=== PATIENT | female | born 1960 | race African-American/Black ===

== ENCOUNTER 2016-09-18 11:28 | Emergency (ER) | payer OTHER, BC ==
[2016-09-18 11:39] VITALS: BP 134/88; PULSE 68; TEMP 98.1; BMI 32.1
[2016-09-18] MEDS ORDERED: DEXAMETHASONE SOD PHOSPHATE 10 MG/1 ML VIAL ONE (12:14)
--- NOTE | 2016-09-18 12:18 | PDOC ---
History of Present Illness - General Chief Complaint: Bite Stated Complaint: POSSIBLE SPIDER BITE Time Seen by Provider: 09/18/16 11:57 History Source: Patient Exam Limitations: No Limitations - History of Present Illness Initial Comments: 09/18/16 12:12 Patient came to emergency department with complaints of insect bite? To right inner lower extremity. States was in her office, works at [employer], and felt a sting to her right calf with an itch, when she pulled her pants leg up noticed for discreet erythematous lesions to her upper inner right calf. Timing/Duration: reports: yesterday Severity: Yes: mild Location: reports: extremities (right lower extremities ) Past History - Past Medical History Allergies/Adverse Reactions: Allergies Allergy/AdvReac Type Severity Reaction Status Date / Time No Known Allergies Allergy Verified 09/18/16 11:39 Home Medications: Ambulatory Orders NK [No Known Home Medication] 09/18/16 Other medical history: PATIENT DENIES MEDICAL HX - Surgical History Abdominal Surgery: (TUBAL LIGATION) - Psycho/Social/Smoking Cessation Hx Suicidal Ideation: No Smoking History: Never smoked Hx Alcohol Use: No Drug/Substance Use Hx: No Review of Systems - Review of Systems Able to Perform ROS?: Yes Is the patient limited Portuguese proficient: Yes Constitutional: Yes: Symptoms Reported, See HPI, Fever, Malaise Respiratory: Yes: See HPI, Wheezing. No: Symptoms reported, Cough All Other Systems: Reviewed and Negative *Physical Exam - Vital Signs Last Vital Signs Temp Pulse Resp BP Pulse Ox 98.1 F 68 18 134/88 99 09/18/16 11:36 09/18/16 11:36 09/18/16 11:36 09/18/16 11:36 09/18/16 11:36 - Physical Exam General Appearance: Yes: Nourished, Appropriately Dressed. No: Apparent Distress HEENT: positive: RONNIE, Normal ENT Inspection, TMs Normal, Pharynx Normal Neck: positive: Supple, Lymphadenopathy (R). negative: Tender Cardiovascular: positive: Regular Rhythm Gastrointestinal/Abdominal: positive: Soft. negative: Tender Musculoskeletal: positive: Normal Inspection. negative: Muscle Spasm Extremity: positive: Normal Capillary Refill, Normal Inspection, Normal Range of Motion Integumentary: positive: Warm, Pale, Other (erythematous lesions well- circumscribed 4 to the inner aspect of her right upper with some inflammatory changes consistent with an insect bite. Has tenderness and erythema around the area, appears inflamed but not infected) Neurologic: positive: metropolitan editor II-XII NML intact, Fully Oriented, Alert, Normal Mood/ Affect, Normal Response, Motor Strength 5/5 Progress Note - Progress Note Progress Note: Probable insect bites, may be spider. Will treat with topical steroid and antihistamine *DC/Admit/Observation/Transfer Diagnosis at time of Disposition: Insect bite Qualifiers: Encounter type: initial encounter Qualified Code(s): W57.XXXA - Bitten or stung by nonvenomous insect and other nonvenomous arthropods, initial encounter - Discharge Dispostion Disposition: HOME Condition at time of disposition: Stable Admit: No - Patient Instructions Printed Discharge Instructions: How to Care for an Insect Bite or Sting Additional Instructions: Rest, keep cool and dry- avoid strenuous activity or hot /humid environments Less hot showers, no abrasive soaps May use heavy creams like Eucerin or Cetaphil to keep skin moist May apply Aveeno, calamine lotion, [id number] hydrocortisone creams as needed for symptoms May use Benadryl at night for antihistamine, Zyrtec/ Melissa or Claritin for daytime antihistamine use to help with itching May use [id number] hydrocortisone cream on all areas except face Try to identify cause for rash and avoid exposures Followup with PMD in one week if no resolution Make appointment with foil stamp operator for evaluation when possible You have been given 10 mg of Decadron, steroid for anti-inflammatory purpose
== END 2016-09-18 12:45 | disposition home or self-care (01) ==
LOC: JERFT 11:28
DX: S80.861A Insect bite (nonvenomous), right lower leg, initial encounter (principal); W57.XXXA Bitten or stung by nonvenomous insect and other nonvenomous arthropods, initial encounter; Y93.89 Activity, other specified; Y92.238 Other place in hospital as the place of occurrence of the external cause; Y99.0 Civilian activity done for income or pay
CPT/HCPCS: 99281-25